=== PATIENT | female | born 1965 | race Hispanic/Latino ===

== ENCOUNTER 2016-04-04 12:32 | Emergency (ER) | payer OTHER ==
[~2016-04-04] VITALS: Ht 152.4 cm; Wt 73.8 kg
[~2016-04-04 12:32] MED LIST: AMOXICILLIN875 MG PO; CHERATUSSIN AC473 ML PO
[2016-04-04] MEDS ORDERED: NAPROSYN500 MG PO (14:11)
[2016-04-04] MEDS ORDERED: NORCO 5/3251 TABLET PO (14:11)
[2016-04-04 14:30] VITALS: BP 121/69
== END 2016-04-04 14:31 | disposition home or self-care (01) ==
LOC: EME 12:32
DX: M25.562 Pain in left knee (principal)
CPT/HCPCS: 73564; 99281; 99284; J1885